=== PATIENT | female | born 1935 | race Caucasian/White ===

== ENCOUNTER 2020-07-19 17:58 | Emergency (ER) | payer MEDICARE, OTHER ==
[2020-07-19 18:17] LABS: #Basophils 0.1 thou/uL (0.0-0.2); #Eosinphils 0.1 thou/uL (0.0-0.7); #Lymphocytes 1.9 thou/uL (1.20-3.40); #Monocytes 0.5 thou/uL (0.11-0.59); #Neutrophils 6.2 thou/uL (1.40-6.50); %Basophils 0.6 % (0.0-1.0); %Eosinophils 1.5 % (0.0-10.0); %Lymphocytes 21.4 % (21.0-51.0); %Monocytes 5.7 % (0.0-10.0); %Neutrophils 70.8 % (42.0-75.0); Hemoglobin 12.8 g/dL (12.0-16.0); Mean Corpuscular HGB CONC 31.7 g/dL (32.0-36.0); Mean Corpuscular Hemoglobin 30.3 pg (27.0-31.0); Mean Corpuscular Volume 95.6 fL (78.0-98.0); Mean Platelet Volume 7.1 fL (7.4-10.4); Platelet Count 215 thou/uL (130-400); RBC Distribution Width 12.8 % (11.5-14.5); Red Blood Cell (RBC) Count 4.22 mill/uL (4.20-5.40); White Blood Cell (WBC) Count 8.7 thou/uL (4.8-10.8)
[2020-07-19 18:32] LABS: ALT (SGPT) 24 U/L (8-55); AST (SGOT) 17 U/L (5-34); Albumin 3.7 g/dL (3.4-4.8); Alkaline Phosphatase 57 U/L (40-110); Anion Gap 14 mmol/L (10-20); BUN (Urea Nitrogen) 12 mg/dL (9.8-20.1); Bilirubin, Total 0.3 mg/dL (0.2-1.2); Calc. Creatinine Clearance 0 mL/min (70-130); Calcium 9.2 mg/dL (7.8-10.44); Carbon Dioxide 28 mmol/L (23-31); Chloride 102 mmol/L (98-107); Estimated GFR-MDRD 75; Globulin 3.3 g/dL (2.4-3.5); Glucose 118 mg/dL (83-110); Potassium 4.1 mmol/L (3.5-5.1); Sodium 140 mmol/L (136-145)
[2020-07-19 19:04] LABS: Bilirubin Negative (Negative); Blood, Urine Negative (Negative); Clarity Clear (Clear); Glucose, Urine (Dipstick) Negative (Negative); Ketone, Urine Negative (Negative); Leukocyte Small (Negative); Nitrite Negative (Negative); Protein, Urine (Dipstick) Negative (Neg-Trace); Urobilinogen 0.2 mg/dL (Less than 2); pH, Urine 6.5 (5.0-9.0)
[2020-07-19 19:10] LABS: Bacteria/HPF 2+ HPF (None Seen); RBC/HPF None Seen HPF (0-3); Squamous Epithelial 0-3 HPF (0-3); WBC/HPF 0-3 HPF (0-3)
--- NOTE | 2020-07-19 20:34 | RAD ---
RIGHT FOREARM TWO VIEWS: 07/19/20 The radius and ulna appear intact with no definite fracture appreciated. There are a few flecks of jerod ne at the tip of the ulnar styloid but this may be calcification in the soft tissues. I doubt a fract ure here. No joint effusion is seen at the elbow. IMPRESSION: No acute findings. POS: HOME
--- NOTE | 2020-07-19 20:55 | RAD ---
LUMBAR SPINE 07/19/20 AP, lateral and spot views are provided. Anterior compressions of T11 and T12 vertebral bodies are pr esent. I do not have any prior films to compare with, but my suspicion is that these are old. There is posterior fusion of L4 and L5 with pedicle screws. One of the pedicle screws at the L5 level has a crack in it. I do not have any old films to compare with to tell if this is new or old. Mild anterior subluxation of L4 on L5 is present as is the same at L3-L4. The disc spaces are preserv ed. The SI joints are symmetrical. The aorta is densely calcified. IMPRESSION: 1. Mild anterior compressions of T11 and T12, most likely old. 2. Anterior subluxation of L3 on L4 and L4 on L5, probably chronic. 3. Crack in one of the pedicle screws of L5, age indeterminate. POS: HOME
--- NOTE | 2020-07-19 21:01 | CT ---
CT FACIAL BONES WITHOUT CONTRAST: 07/19/[address] of the face was done following a fall. A soft tissue hematoma is seen over the midline of t he patient's forehead. The underlying frontal bone appears intact. The maxillary, frontal and ethmoid sinuses are clear. There are fractures of the nasal bones, particularly on the left with septal pee ation towards the left. The orbital rims appear intact and the retro-orbital areas appears normal. Th e mandible appears intact. An incidental finding is mucosal thickening in the right side of the sphen oid sinus. IMPRESSION: 1. Nasal fractures, particularly the left nasal bone, with septal deviation towards the left. 2. Orbits intact, as well as all other bones. 3. Mucosal thickening in the right side of the sphenoid sinus. Findings discussed with Dr. Echavarria at 1840 on 07/19/20. Code CR POS: HOME
--- NOTE | 2020-07-19 21:06 | CT ---
CT OF THE BRAIN WITHOUT CONTRAST: 07/19/20 Diffuse atrophy is present. There is profound hypolucency in the deep white matter bilaterally consis tent with chronic ischemic change. The ventricles are normal in size for age and atrophy. No intracra nial bleeding was seen. There is no sign of mass, edema or obvious acute stroke. A small stroke would be hidden by the chronic ischemic change. The skull appears intact. Nasal fractures are present, see CT of the face report. Mucosal thickening is present in the right side of the sphenoid sinus. Dense calcifications are seen in the vertebral arteries. IMPRESSION: 1. Severe chronic ischemic change. 2. No intracranial bleeding visible. 3. Left nasal fracture with left septal deviation. 4. Mucosal thickening in the right side of the sphenoid sinus. Preliminary report discussed with Dr. Echavarria at 1840 on 07/19/20. POS: HOME
--- NOTE | 2020-07-19 21:14 | CT ---
CT OF THE CERVICAL SPINE 07/19/[address] of the cervical spine was performed following trauma. The patient has moderately severe sco liosis of the cervical spine convexed right. This plus severe degenerative changes at multiple levels decreases the sensitivity of this study. Nevertheless, no fracture was seen at any level. Findings by level follow: C1-C2: No acute findings. C2-C3: No acute findings. C3-C4: Severe facet arthritis, particularly on the left side with tremendous bony overgrowth. There i s severe left foraminal narrowing. There is probably some disc osteophyte complex present. C4-C5: There is anterior subluxation of C4 on C5 due to the severe arthritic changes in the facets, w orst on the left side. Severe left foraminal narrowing is suggested. C5-C6: Prominent facet arthritis. It is difficult to assess the foramina at this level. C6-C7: Severe arthritic changes but no acute findings. C7-T1: No acute findings. T1-T2: No acute findings. The lung apices are clear. IMPRESSION: Scoliosis with truly severe degenerative change. Subluxations present appear to be on the basis of ar thritic change. No fracture seen in this low sensitivity study. Findings discussed with Dr. Echavarria at 1840 on 07/19/20. POS: HOME
== END 2020-07-19 19:20 | disposition home or self-care (01) ==
LOC: BURERS 17:58
DX: S02.2XXA Fracture of nasal bones, initial encounter for closed fracture (principal); S00.83XA Contusion of other part of head, initial encounter; S50.11XA Contusion of right forearm, initial encounter; M54.5 Low back pain; F03.90 Unspecified dementia, unspecified severity, without behavioral disturbance, psychotic disturbance, mood disturbance, and anxiety; E11.9 Type 2 diabetes mellitus without complications; E78.5 Hyperlipidemia, unspecified; I10 Essential (primary) hypertension; F32.9 Major depressive disorder, single episode, unspecified; Z79.899 Other long term (current) drug therapy; Z79.84 Long term (current) use of oral hypoglycemic drugs; W19.XXXA Unspecified fall, initial encounter
CPT/HCPCS: 36415; 36416; 70450; 70486; 72100; 72125; 80053; 81003; 81015; 85025; 87077; 87086; 87186

== ENCOUNTER 2020-10-01 19:28 | Emergency (ER) | payer MEDICARE, OTHER ==
[~2020-10-01 19:28] MED LIST: Iopamidol 370 76% 100 ML VIAL ONE
--- NOTE | 2020-10-01 21:06 | CT ---
CT OF THE BRAIN WITHOUT CONTRAST: 10/01/[address] of the brain was done for evaluation following trauma. Comparison is made with the 07/19/20 study. No intracranial bleeding or extra-axial hematoma was seen. Diffuse atrophy with moderate compensatory dilatation of the ventricles is present as before. There is abundant deep white matter lucency sugg esting chronic ischemic changes. Small acute strokes would be missed against that background. No sign of mass or edema was found. The skull appears intact. No fracture was seen. The sphenoid sinus is cl ear. Deviation of the nasal septum towards the left is longstanding. IMPRESSION: Diffuse atrophy and chronic ischemic changes but no acute intracranial findings. POS: HOME
--- NOTE | 2020-10-01 21:27 | CT ---
CT CERVICAL SPINE 10/01/20 Comparison is made with the 07/19/20 study. No fracture of dislocation was seen. 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 Anterior sublux ation of C5 on C6 is chronic and was present previously. There is severe multilevel degenerative agosto ge and scoliosis throughout this patient's spine. the facet arthritis, particularly on the left side is extremely severe. Multilevel foraminal stenosis is seen, mainly on the left. The C1 to dens distan ce is normal and the soft tissues are normal in thickness. IMPRESSION: Severe degenerative changes but no acute traumatic findings. No particular change since the June tu. POS: HOME
[2020-10-01] MEDS ORDERED: Acetaminophen 325 MG TAB ONE (21:50)
--- NOTE | 2020-10-01 21:51 | CT ---
CT CHEST, ABDOMEN AND PELVIS WITH CONTRAST: 10/01/[address] of the chest, abdomen and pelvis was done following a fall. CT OF THE THORAX: There are fractures of at least the left 5th through 8th ribs laterally. There may be one or two more . There is atelectasis in the left lung, but I see no pneumothorax or significant pleural effusion. The right lung is relatively clear except for some minor dependent atelectasis. There are compression fractures of the T11 and T12 vertebral bodies, however, this is not new. These can be seen on lumbar spine films from last June. The degree of compression seems little different. No new fractures we re appreciated. There is no sign of mediastinal mass or adenopathy. The patient's pulmonary arteries are rather large measuring about 2.8 cm in diameter each. Some coronary artery calcification is prese nt. There is no sign of pericardial effusion. CT OF THE ABDOMEN: Computed tomography of the abdomen showed all major organs to be intact. There is no sign of lacerati on or hematoma in the liver, spleen, pancreas, adrenal glands or kidneys. Some calcified granulomas a re present in the spleen. There is no sign of urinary tract obstruction. There is at least one tiny c yst in the right kidney. The aorta is calcified but shows no aneurysm of concern. No free air or free fluid was seen in the abdomen. There is no distention of bowel to suggest obstruction. A very minor fat filled umbilical hernia was noted. CT OF THE PELVIS: Shows no pelvic fractures, signs of pelvic hematoma or other acute pathology. The hips appear intact. There has been prior back surgery with posterior fusion at the L4-L5 level with pedicle screws. Ther e is some spondylolisthesis of L4 on L5 which is not new. IMPRESSION: The most pertinent findings are fractures of multiple left ribs but with minimal displacement. Underl la nena atelectasis in the left lung is seen as expected. Preliminary reports called to Dr. Echavarria at 2130 on 10/01/20. Note: The scanning of this patient was initially delayed with permission of the ER doctor due to a po ssible COVID patient scanned right before her. POS: HOME
== END 2020-10-01 22:50 | disposition home or self-care (01) ==
LOC: BURERS 19:28
DX: S22.42XA Multiple fractures of ribs, left side, initial encounter for closed fracture (principal); W18.30XA Fall on same level, unspecified, initial encounter; Z79.899 Other long term (current) drug therapy; Z79.82 Long term (current) use of aspirin; Z79.84 Long term (current) use of oral hypoglycemic drugs; E11.9 Type 2 diabetes mellitus without complications; F03.90 Unspecified dementia, unspecified severity, without behavioral disturbance, psychotic disturbance, mood disturbance, and anxiety; E78.5 Hyperlipidemia, unspecified; I10 Essential (primary) hypertension; K21.9 Gastro-esophageal reflux disease without esophagitis
CPT/HCPCS: 70450; 71260; 72125; 74177; Q9967

== ENCOUNTER 2021-06-01 01:38 | Emergency (ER) | payer MEDICARE, OTHER | END 2021-06-01 03:20 | LOC: BURERS 01:38 | DX: S00.83XA Contusion of other part of head, initial encounter (principal); E11.9 Type 2 diabetes mellitus without complications; E78.5 Hyperlipidemia, unspecified; I10 Essential (primary) hypertension; K21.9 Gastro-esophageal reflux disease without esophagitis; M06.9 Rheumatoid arthritis, unspecified; Z79.899 Other long term (current) drug therapy; Z79.84 Long term (current) use of oral hypoglycemic drugs; Z79.82 Long term (current) use of aspirin; W19.XXXA Unspecified fall, initial encounter | CPT/HCPCS: 70450; 72125 ==

== ENCOUNTER 2022-07-01 15:53 | Emergency (ER) | payer MEDICARE, OTHER ==
[2022-07-01] MEDS ORDERED: Ketorolac Tromethamine 30 MG/ML VIAL ONE (16:03)
== END 2022-07-01 16:30 | disposition home or self-care (01) ==
LOC: BURERS 15:53
DX: M47.816 Spondylosis without myelopathy or radiculopathy, lumbar region (principal); M16.11 Unilateral primary osteoarthritis, right hip; E11.9 Type 2 diabetes mellitus without complications; E78.5 Hyperlipidemia, unspecified; I10 Essential (primary) hypertension; Z79.82 Long term (current) use of aspirin; Z79.84 Long term (current) use of oral hypoglycemic drugs; Z79.899 Other long term (current) drug therapy
CPT/HCPCS: 72170; 96372; J1885

== ENCOUNTER 2022-07-31 08:31 | Emergency (ER) | payer MEDICARE, OTHER | END 2022-07-31 10:05 | disposition home or self-care (01) | LOC: BURERS 08:31 | DX: S63.075A Dislocation of distal end of left ulna, initial encounter (principal); E11.9 Type 2 diabetes mellitus without complications; E78.5 Hyperlipidemia, unspecified; I10 Essential (primary) hypertension; K21.9 Gastro-esophageal reflux disease without esophagitis; X58.XXXA Exposure to other specified factors, initial encounter ==